=== PATIENT | male | born 1970 | race African-American/Black ===

== ENCOUNTER 2025-04-07 07:20 | Emergency (ER) | payer BC, SELFPAY ==
[2025-04-07 07:24] VITALS: BP 153/90
[2025-04-07] MEDS: TORADOL 30 MG IV (08:07)
[2025-04-07 08:09] VITALS: BP 129/95
[2025-04-07 08:25] LABS: Hematocrit 42.9 % (39.0-52.0); Hemoglobin 14.4 g/dL (13.0-18.0); Mean Corp Hgb Conc. 33.6 g/dL (33.0-37.0); Mean Corpuscular Volume 83.8 fL (80.0-94.0); Nucleated Red Blood Cells % 0 % (-); Platelet Count 207 10^3/uL (130-400); Red Cell Dist. Width 13.5 % (11.5-14.5); Urine Character Clear (Clear)
[2025-04-07 08:51] LABS: ALT (SGPT) 41 U/L (0-50); AST (SGOT) 34 U/L (17-59); Albumin 4.6 g/dl (3.5-5.0); Alkaline Phosphatase 82 U/L (38-126); Blood Urea Nitrogen 17 mg/dl (9-20); Calcium 9.6 mg/dl (8.4-10.2); Carbon Dioxide 28 mmol/L (22-30); Chloride 104 mmol/L (98-107); Glucose 104 mg/dl (70-99); Lipase 121 U/L (23-300); Potassium 4.5 mmol/L (3.5-5.1); Sodium 138 mmol/L (135-145); Total Protein 7.1 g/dl (6.3-8.2); eGFR > 60.00
[2025-04-07 09:00] VITALS: BP 123/89
[2025-04-07 09:02] LABS: Troponin I < 0.012 ng/ml
[2025-04-07 09:04] LABS: D-Dimer < 0.27 ug/mlFEU (0.00-0.50)
[2025-04-07 09:18] LABS: Urine Red Blood Cell 0-2 /HPF (0-2); Urine Squamous Cell 0-2 /LPF (Few); Urine White Cell 0-2 /HPF (0-5)
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
[2025-04-07 10:00] VITALS: BP 130/94
== END 2025-04-07 10:44 | disposition home or self-care (01) ==
LOC: EMR 07:20
PROVIDERS: Physician Assistant; EMERGENCY PHYSICIAN Emergency Medicine
DX: M54.9 Dorsalgia, unspecified (principal); R07.9 Chest pain, unspecified; J45.909 Unspecified asthma, uncomplicated; Z82.49 Family history of ischemic heart disease and other diseases of the circulatory system
CPT/HCPCS: 99284; 96374; 71046; 80053; 81003; 81015; 83690; 84484; 85025; 85379; 93005